=== PATIENT | female | born 1995 | race Two or more races ===

== ENCOUNTER 2024-04-12 11:46 | Inpatient (IN) | payer MEDICAID, OTHER ==
[~2024-04-12] VITALS: Ht 160 cm; Wt 84.6 kg
[2024-04-12 15:58] LABS: Urine Bacteria FEW /hpf (None Seen); Urine Blood TRACE /uL (Negative); Urine Clarity Turbid (Clear); Urine Color Yellow (Yellow); Urine Mucus FEW (None Seen); Urine Protein, UAD TRACE (Negative); Urine Specific Gravity 1.027 (1.001-1.035); Urine Urobilinogen Normal (Negative); Urine WBC 12 /hpf (0 - 5)
[2024-04-12 16:01] LABS: Basophils # (auto) 0 10 ^3/uL (0-0.2); Basophils % (auto) 0.3 % (0.0-2.0); Eosinophils # (auto) 0.2 10 ^3/uL (0-0.8); Eosinophils % (auto) 1.2 % (0.0-7.0); Hematocrit 39.4 % (36.0-46.0); Hemoglobin 13.4 g/dL (12.2-16.2); Lymphocytes # (auto) 1.6 10 ^3/uL (0.4-5.4); Mean Corpuscular Hemoglobin 31.9 pg (28.0-32.0); Mean Corpuscular Volume 93.7 fL (80.0-100.0); Monocytes # (auto) 0.8 10 ^3/uL (0-1.3); Monocytes % (auto) 6.3 % (0.0-12.0); Neutrophils % (auto) 79.2 % (37.0-80.0); Nucleated Red Blood Cells % 0.1 %; Platelet Count (auto) 190 10^3/uL (140-450); Red Cell Distribution Width 14.3 % (11.8-14.3); White Blood Cell 12.6 10^3/uL (4.4-10.8)
[2024-04-12 16:02] VITALS: BP 116/70; PULSE 79; RESP 14; TEMP 98.3; O2SAT 95
[2024-04-12 16:03] LABS: Anion Gap 7 (5-15); Carbon Dioxide 24 mmol/L (20-30); Chloride 105 mmol/L (98-107); Sodium 136 mmol/L (136-145)
[2024-04-12 16:04] LABS: Calcium 9.9 mg/dL (8.7-10.4)
[2024-04-12 16:09] LABS: BUN/Creatinine Ratio 11.1 (10.0-20.0); Blood Urea Nitrogen 7 mg/dL (9-23); Glucose 89 mg/dL (74-106)
[2024-04-12] MEDS ORDERED: ceFAZolin IM 1GM/2.5ML STERILE WATER IM ONE (16:30)
[2024-04-12] MEDS ORDERED: ACETAMINOPHEN 325 MG TAB PO PRN (17:45)
[2024-04-12] MEDS ORDERED: DOCUSATE SOD 100 MG CAP PO PRN (17:45)
[2024-04-12] MEDS ORDERED: ONDANSETRON HCL 4 MG/2 ML VIAL IV PRN (17:45)
[2024-04-12] MEDS: ceFAZolin 1GM/50ML 50 ML IV ONE (17:59)
[2024-04-12] MEDS: SODIUM CHLORIDE 0.9% 1,000 ML IV SCH (18:02)
[2024-04-12] MEDS ORDERED: MORPHINE SULFATE INJ 2 MG/ml SYRG IV PRN (20:00)
[2024-04-12] MEDS ORDERED: NITROGLYCERIN 0.4 MG SL TAB SL PRN (20:00)
[2024-04-12] MEDS ORDERED: SODIUM CHLOR 0.9% PF (SALINE LOCK) 10ML VIAL/SYR IV SCH (22:00)
[2024-04-13] MEDS ORDERED: cefTRIAXone 1GM/50ML D5W 50 ML IV SCH (09:00)
== END 2024-04-12 20:02 | disposition left against medical advice (07) | DRG 566 ==
LOC: ER 11:46 → TELE 19:51
PROVIDERS: ADMIT Nurse Practitioner Family; ATTEND Nurse Practitioner Family
DX: O99.713 Diseases of the skin and subcutaneous tissue complicating pregnancy, third trimester (principal); L03.317 Cellulitis of buttock; Z53.29 Procedure and treatment not carried out because of patient's decision for other reasons; O23.43 Unspecified infection of urinary tract in pregnancy, third trimester; N39.0 Urinary tract infection, site not specified; Z3A.34 34 weeks gestation of pregnancy
CPT/HCPCS: 36415; 76881; 80048; 81001; 85025; 87086; 87088; 87186; 96365; G0378; J0690